=== PATIENT | male | born 1965 | race Caucasian/White ===

== ENCOUNTER 2017-07-17 11:45 | Emergency (ER) | payer OTHER ==
[~2017-07-17] VITALS: Ht 188 cm; Wt 112.7 kg
[~2017-07-17 11:45] MED LIST: ASPIR-LOW81 MG PO; ATENOLOL25 MG PO; ATORVASTATIN CA80 MG PO; CIALIS5 MG PO; HYDROCHLOROTH12.5 M3 PO; MULTIPLE VITAM1 EACH PO
[2017-07-17 12:09] LABS: HEMATOCRIT 43.7 % (38.0-50.0); HEMOGLOBIN 15.8 G/DL (12.5-16.6); MCH 31.9 PG (29.0-34.0); MCHC 36.2 G/DL (30.0-36.0); MCV 88.3 FL (86-99); PLATELET COUNT 315 K/uL (156-360); RBC DIS.WIDTH-CV 11.9 % (11.8-14.6); RBC DIS.WIDTH-SD 37.8 % (39-53); RED BLOOD COUNT 4.95 M/uL (4.00-5.50); WHITE BLOOD COUNT 7.9 K/uL (4.1-10.2)
[2017-07-17 12:17] LABS: CHLORIDE 110 mEq/L (99-109); POTASSIUM 3.9 mEq/L (3.7-5.4); SODIUM 140 mEq/L (136-147)
[2017-07-17 12:19] LABS: GLUCOSE 120 mg/dL (70-99)
[2017-07-17 12:23] LABS: CREATININE 1.2 mg/dL (0.6-1.3); GFR ESTIMATE (CALCULATED) > 59 mL/min/ (58.99-99999)
[2017-07-17 12:24] LABS: UREA NITROGEN (BUN) 15 mg/dL (9-23)
[2017-07-17 16:10] LABS: APPEARANCE SL.HAZY ((CLEAR)); BILIRUBIN NEGATIVE; BLOOD LARGE; COLOR YELLOW ((YELLOW)); GLUCOSE (STRIP) NEGATIVE; KETONES NEGATIVE; LEUKOCYTES NEGATIVE; NITRITE NEGATIVE; PROTEIN (STRIP) 30; SPECIFIC GRAVITY 1.026 (1.000-1.030); UROBILINOGEN 0.2 MG/DL (0.2-1.0)
[2017-07-17 16:16] LABS: BACTERIA RARE /HPF; CALCIUM OXALATE CRYSTALS 1+ /HPF; EPITHELIAL CELLS RARE /HPF; MUCUS 4+ /LPF; RED BLOOD CELLS TNTC /HPF (0-5); UCUL ADDED? YES; WHITE BLOOD CELLS 0-5 /HPF (0-5)
[2017-07-17] MEDS ORDERED: PERCOCET 5/31 TABLET PO (16:20)
[2017-07-17] MEDS ORDERED: ZOFRAN ODT4 MG PO (16:20)
[2017-07-17 16:30] VITALS: BP 147/89
== END 2017-07-17 16:45 | disposition home or self-care (01) ==
LOC: EME 11:45
DX: N20.0 Calculus of kidney (principal); I10 Essential (primary) hypertension; F17.200 Nicotine dependence, unspecified, uncomplicated; Z87.442 Personal history of urinary calculi
CPT/HCPCS: 76770; 76870; 80048; 81003; 85027; 87086

== ENCOUNTER 2017-10-23 12:27 | Emergency (ER) | payer OTHER ==
[~2017-10-23] VITALS: Ht 188 cm; Wt 111.9 kg
[~2017-10-23 12:27] MED LIST changes: +PERCOCET 5/31 TABLET PO; +ZOFRAN ODT4 MG PO
[2017-10-23 13:04] LABS: APPEARANCE CLEAR ((CLEAR)); BILIRUBIN NEGATIVE; BLOOD LARGE; COLOR YELLOW ((YELLOW)); GLUCOSE (STRIP) NEGATIVE; KETONES NEGATIVE; LEUKOCYTES NEGATIVE; NITRITE NEGATIVE; PROTEIN (STRIP) NEGATIVE; SPECIFIC GRAVITY 1.021 (1.000-1.030); UROBILINOGEN 0.2 MG/DL (0.2-1.0)
[2017-10-23 13:04] LABS: HEMATOCRIT 43.2 % (38.0-50.0); HEMOGLOBIN 15.7 G/DL (12.5-16.6); MCH 31.8 PG (29.0-34.0); MCHC 36.3 G/DL (30.0-36.0); MCV 87.4 FL (86-99); PLATELET COUNT 328 K/uL (156-360); RBC DIS.WIDTH-CV 11.8 % (11.8-14.6); RBC DIS.WIDTH-SD 37.8 % (39-53); RED BLOOD COUNT 4.94 M/uL (4.00-5.50); WHITE BLOOD COUNT 8.1 K/uL (4.1-10.2)
[2017-10-23 13:11] LABS: BACTERIA NONE SEEN /HPF; EPITHELIAL CELLS RARE /HPF; MUCUS TRACE /LPF; RED BLOOD CELLS TNTC /HPF (0-5); UCUL ADDED? YES
[2017-10-23 13:15] LABS: ALBUMIN 4.2 g/dL (3.2-4.8); CHLORIDE 107 mEq/L (99-109); POTASSIUM 4.2 mEq/L (3.7-5.4); SODIUM 141 mEq/L (136-147)
[2017-10-23 13:18] LABS: GLUCOSE 131 mg/dL (70-99); TOTAL PROTEIN 7.3 g/dL (6.4-8.3)
[2017-10-23 13:20] LABS: TOTAL BILIRUBIN 0.2 mg/dL (0.0-1.0)
[2017-10-23 13:21] LABS: ALKALINE PHOSPHATASE 76 IU/L (3-129); CREATININE 1.3 mg/dL (0.6-1.3); GFR ESTIMATE (CALCULATED) > 59 mL/min/ (58.99-99999)
[2017-10-23 13:22] LABS: UREA NITROGEN (BUN) 15 mg/dL (9-23)
[2017-10-23 13:23] LABS: AST (GOT) 18 IU/L (2-34)
[2017-10-23 13:24] LABS: ALT (GPT) 28 IU/L (3-49)
[2017-10-23] MEDS ORDERED: FLOMAX0.4 MG PO (14:07)
[2017-10-23] MEDS ORDERED: NAPROSYN500 MG PO (14:07)
[2017-10-23] MEDS ORDERED: ZOFRAN ODT4 MG PO (14:07)
[2017-10-23] MEDS ORDERED: LORTAB 5-325 M1 EACH PO (14:07)
[2017-10-23 14:19] VITALS: BP 130/81
== END 2017-10-23 14:20 | disposition home or self-care (01) ==
LOC: EME 12:27
PROVIDERS: Nurse Practitioner Family
DX: N13.2 Hydronephrosis with renal and ureteral calculous obstruction (principal); Z87.442 Personal history of urinary calculi; Z71.6 Tobacco abuse counseling; F17.200 Nicotine dependence, unspecified, uncomplicated; I10 Essential (primary) hypertension; Z90.49 Acquired absence of other specified parts of digestive tract
CPT/HCPCS: 74176; 80053; 81003; 85027; 87086; 99281; 99285; J1885; J2405; J3010; J7030

== ENCOUNTER 2018-01-06 14:33 | Emergency (ER) | payer OTHER ==
[~2018-01-06] VITALS: Ht 188 cm; Wt 113.7 kg
[~2018-01-06 14:33] MED LIST changes: +FLOMAX0.4 MG PO; +LORTAB 5-325 M1 EACH PO; +NAPROSYN500 MG PO
[2018-01-06 15:44] LABS: HEMATOCRIT 44.4 % (38.0-50.0); HEMOGLOBIN 16.1 G/DL (12.5-16.6); MCH 31.6 PG (29.0-34.0); MCHC 36.3 G/DL (30.0-36.0); MCV 87.1 FL (86-99); PLATELET COUNT 316 K/uL (156-360); RBC DIS.WIDTH-CV 11.6 % (11.8-14.6); RBC DIS.WIDTH-SD 37.2 % (39-53)
[2018-01-06 15:57] LABS: ALBUMIN 4.3 g/dL (3.2-4.8); CHLORIDE 109 mEq/L (99-109); POTASSIUM 4.5 mEq/L (3.7-5.4); SODIUM 140 mEq/L (136-147)
[2018-01-06 15:59] LABS: GLUCOSE 98 mg/dL (70-99); TOTAL PROTEIN 7.5 g/dL (6.4-8.3)
[2018-01-06 16:01] LABS: TOTAL BILIRUBIN 0.3 mg/dL (0.0-1.0)
[2018-01-06 16:03] LABS: ALKALINE PHOSPHATASE 74 IU/L (3-129); CREATININE 1.2 mg/dL (0.6-1.3); GFR ESTIMATE (CALCULATED) > 59 mL/min/ (58.99-99999)
[2018-01-06 16:04] LABS: AST (GOT) 18 IU/L (2-34); UREA NITROGEN (BUN) 14 mg/dL (9-23)
[2018-01-06 16:06] LABS: ALT (GPT) 30 IU/L (3-49)
[2018-01-06 17:37] LABS: APPEARANCE CLOUDY ((CLEAR)); BILIRUBIN NEGATIVE; BLOOD MODERATE; COLOR YELLOW ((YELLOW)); GLUCOSE (STRIP) NEGATIVE; KETONES NEGATIVE; LEUKOCYTES SMALL; NITRITE NEGATIVE; PROTEIN (STRIP) 30; SPECIFIC GRAVITY 1.023 (1.000-1.030); UROBILINOGEN 0.2 MG/DL (0.2-1.0)
[2018-01-06 17:58] LABS: BACTERIA NONE SEEN /HPF; CALCIUM OXALATE CRYSTALS 3+ /HPF; EPITHELIAL CELLS NONE SEEN /HPF; HYALINE CASTS 0-5 /LPF; MUCUS TRACE /LPF; RED BLOOD CELLS TNTC /HPF (0-5); UCUL ADDED? YES; WHITE BLOOD CELLS 20-30 /HPF (0-5)
[2018-01-06] MEDS ORDERED: FLOMAX0.4 MG PO (18:27)
[2018-01-06] MEDS ORDERED: PERCOCET 5/31 TABLET PO (18:27)
[2018-01-06 18:37] VITALS: BP 142/92
== END 2018-01-06 18:39 | disposition home or self-care (01) ==
LOC: EME 14:33
DX: N13.2 Hydronephrosis with renal and ureteral calculous obstruction (principal); Z87.442 Personal history of urinary calculi; I10 Essential (primary) hypertension; F17.200 Nicotine dependence, unspecified, uncomplicated
CPT/HCPCS: 74176; 80053; 81003; 85027; 87086; 99281; 99283; J1885

== ENCOUNTER 2018-01-13 11:04 | Day surgery (SDC) | payer OTHER ==
[~2018-01-13] VITALS: Ht 190.5 cm; Wt 114.0 kg
[2018-01-13 11:46] VITALS: BP 170/100
[2018-01-13 15:00] VITALS: BP 171/102
[2018-01-13 16:05] VITALS: BP 158/90
== END 2018-01-13 16:05 | disposition home or self-care (01) ==
LOC: SDC 11:04
PROC: 0T768DZ Dilation of Right Ureter with Intraluminal Device, Via Natural or Artificial Opening Endoscopic (ICD-10-PCS; principal; 2018-01-13)
PROC: 0TF68ZZ Fragmentation in Right Ureter, Via Natural or Artificial Opening Endoscopic (ICD-10-PCS; principal; 2018-01-13)
PROC: BT1D1ZZ Fluoroscopy of Right Kidney, Ureter and Bladder using Low Osmolar Contrast (ICD-10-PCS; principal; 2018-01-13)
DX: N20.1 Calculus of ureter (principal); F17.210 Nicotine dependence, cigarettes, uncomplicated; Z82.49 Family history of ischemic heart disease and other diseases of the circulatory system; Z83.3 Family history of diabetes mellitus
CPT/HCPCS: 74018; 76000; 82365 90; C1769; C2625; J0690; J1170; J2250; J3010

== ENCOUNTER 2018-01-17 01:03 | Emergency (ER) | payer OTHER ==
[~2018-01-17] VITALS: Ht 190.5 cm; Wt 111.4 kg
[2018-01-17 02:33] LABS: HEMATOCRIT 43.6 % (38.0-50.0); HEMOGLOBIN 15.6 G/DL (12.5-16.6); MCH 31.5 PG (29.0-34.0); MCHC 35.8 G/DL (30.0-36.0); MCV 87.9 FL (86-99); PLATELET COUNT 333 K/uL (156-360); RBC DIS.WIDTH-CV 11.7 % (11.8-14.6); RBC DIS.WIDTH-SD 37.3 % (39-53); RED BLOOD COUNT 4.96 M/uL (4.00-5.50); WHITE BLOOD COUNT 12.4 K/uL (4.1-10.2)
[2018-01-17 02:44] LABS: ALBUMIN 4.4 g/dL (3.2-4.8); CHLORIDE 103 mEq/L (99-109); POTASSIUM 4.5 mEq/L (3.7-5.4); SODIUM 140 mEq/L (136-147)
[2018-01-17 02:47] LABS: GLUCOSE 101 mg/dL (70-99); TOTAL PROTEIN 7.7 g/dL (6.4-8.3)
[2018-01-17 02:49] LABS: TOTAL BILIRUBIN 0.5 mg/dL (0.0-1.0)
[2018-01-17 02:49] LABS: APPEARANCE SL.HAZY ((CLEAR)); BILIRUBIN NEGATIVE; BLOOD MODERATE; COLOR YELLOW ((YELLOW)); GLUCOSE (STRIP) NEGATIVE; KETONES NEGATIVE; LEUKOCYTES TRACE; NITRITE NEGATIVE; PROTEIN (STRIP) 100; SPECIFIC GRAVITY 1.017 (1.000-1.030); UROBILINOGEN 0.2 MG/DL (0.2-1.0)
[2018-01-17 02:50] LABS: ALKALINE PHOSPHATASE 77 IU/L (3-129); CREATININE 1.2 mg/dL (0.6-1.3); GFR ESTIMATE (CALCULATED) > 59 mL/min/ (58.99-99999)
[2018-01-17 02:51] LABS: UREA NITROGEN (BUN) 16 mg/dL (9-23)
[2018-01-17 02:52] LABS: AST (GOT) 21 IU/L (2-34)
[2018-01-17 02:53] LABS: ALT (GPT) 29 IU/L (3-49)
[2018-01-17 03:03] LABS: BACTERIA RARE /HPF; EPITHELIAL CELLS RARE /HPF; MUCUS TRACE /LPF; RED BLOOD CELLS TNTC /HPF (0-5); UCUL ADDED? YES; WHITE BLOOD CELLS 20-30 /HPF (0-5)
[2018-01-17] MEDS ORDERED: KEFLEX500 MG PO (04:00)
[2018-01-17] MEDS ORDERED: IBU600 MG PO (04:00)
[2018-01-17 04:14] VITALS: BP 153/84
== END 2018-01-17 04:21 | disposition home or self-care (01) ==
LOC: EME 01:03
PROVIDERS: Emergency Medicine
DX: R33.9 Retention of urine, unspecified (principal); R10.30 Lower abdominal pain, unspecified; R19.7 Diarrhea, unspecified; Z98.890 Other specified postprocedural states; N13.30 Unspecified hydronephrosis; K80.20 Calculus of gallbladder without cholecystitis without obstruction; K76.0 Fatty (change of) liver, not elsewhere classified; K42.9 Umbilical hernia without obstruction or gangrene; I10 Essential (primary) hypertension; Z87.442 Personal history of urinary calculi; F17.200 Nicotine dependence, unspecified, uncomplicated
CPT/HCPCS: 74176; 80053; 81003; 85027; 87086; 99281; 99284; J1885